=== PATIENT | male | born 1985 | race Caucasian/White ===

== ENCOUNTER 2020-08-14 01:37 | Emergency (ER) | payer BC, SELFPAY ==
--- NOTE | 2020-08-14 01:38 | ECG_ITS ---
Measurements Intervals [place] Rate: 60 P: 65 DC: 160 QRS: 72 QRSD: 106 T: 46 QT: 416 QTc: 416 Interpretive Statements SINUS RHYTHM INCOMPLETE RIGHT BUNDLE BRANCH BLOCK BORDERLINE ECG Electronically Signed On 08-14-2020 7:08:46 CDT by Jovon Toure D.O.
[2020-08-14 01:39] VITALS: BP 141/84; PULSE 69; RESP 18; TEMP 36.1; O2SAT 100
[2020-08-14 02:01] LABS: Basophils Absolute Auto 0.1 K/mm3 (0.0-0.1); Basophils Percent Auto 0.9 % (0.2-1.2); Eosinophils Absolute Auto 0.2 K/mm3 (0-0.3); Eosinophils Percent Auto 2.9 % (0-4.4); Hemoglobin 13.9 g/dL (14.0-18.0); Immature Granulocyte Absolute 0.02 K/mm3 (0.00-0.031); Immature Granulocyte Percent A 0.3 % (0-0.5); Lymphocytes Absolute Auto 2.41 K/mm3 (0.9-3.2); Lymphocytes Percent Auto 31.7 % (18.3-44.2); Mean Corpuscular HGB Conc 33.9 g/dl (32-36); Mean Corpuscular Hemoglobin 30.2 pg (26-34); Mean Corpuscular Volume 88.9 fl (80-100); Mean Platelet Volume 9.8 fl (7.4-10.4); Monocytes Absolute Auto 0.7 K/mm3 (0.1-0.6); Monocytes Percent Auto 9.3 % (2.6-8.5); Neutrophils Absolute Auto 4.2 K/mm3 (1.3-6.7); Neutrophils Percent Auto 54.9 % (45.5-73.1); Platelet Count Result 229 k/mm3 (150-375); Red Blood Count 4.61 M/mm3 (4.6-6.20); Red Cell Distribution Width 11.9 % (11.5-14.5); White Blood Count 7.6 K/mm3 (4.5-10.0)
[2020-08-14 02:13] LABS: Anion Gap 10 mmol/L (8-16); Blood Urea Nitrogen 19 mg/dL (9-20); Calcium 9.5 mg/dL (8.4-10.2); Carbon Dioxide 29 mmol/L (22-30); Chloride 102 mmol/L (98-107); Estimated CRCL calculation 117 ml/min; Estimated Glomerular Filt Rate > 60; Glucose 106 mg/dL (75-110); Potassium 3.8 mmol/L (3.4-5.0); Sodium 141 mmol/L (137-145)
[2020-08-14 02:14] LABS: INR 0.9
[2020-08-14 02:25] LABS: Troponin I < 0.012 ng/mL (0.000-0.034)
== END 2020-08-14 06:29 | disposition left against medical advice (07) ==
LOC: ANHED 03:13
PROVIDERS: Emergency Medicine; PCP Family Medicine
DX: R07.9 Chest pain, unspecified (principal)
CPT/HCPCS: 36415; 80048; 84484; 85025; 85610; 85730; 93005; 99199

== ENCOUNTER 2021-01-22 03:19 | Emergency (ER) | payer BC, SELFPAY ==
--- NOTE | ~2021-01-22 | CT_ITS ---
EXAMINATION: CT abdomen pelvis w con EXAM DATE: 01/22/2021 04:54 INDICATION: Epigastric abdominal pain . Mid abdominal tenderness. TECHNIQUE: Spiral CT of the abdomen and pelvis was performed following intravenous injection of 100 m L Omnipaque 350. Axial, coronal and sagittal images of the abdomen and pelvis were reviewed. The do se-length product (DLP) for this examination was 769.71 mGy-cm. The exposure was tailored according to patient size (auto mA exposure control), and iterative reconstruction (ASIR) was used as additiona l dose reduction technique. There is no prior study for comparison. FINDINGS: The liver, spleen, adrenal glands and pancreas are unremarkable. Gallbladder is unremarkab le. No biliary obstruction. Portal and splenic veins are patent. Kidneys enhance symmetrically. T here is no hydronephrosis. The prostate is unremarkable. The bladder is unremarkable. There is no retroperitoneal or pelvic lymphadenopathy. The appendix is normal. The stomach and small bowel are unremarkable. There is moderate amount of c olonic stool. No free intraperitoneal gas. The heart is normal in size. There are no pericardial or pleural effusions. The lung bases are unremarkable. There are no osteoblastic or osteolytic les ions identified. IMPRESSION: 1. Moderate colonic stool. Reviewed, dictated and finalized at location B. IMPRESSION: 1. Moderate colonic stool.
--- NOTE | ~2021-01-22 | XR_ITS ---
EXAMINATION: XR chest 1V portable DATE: 01/22/2021 03:50 INDICATION: Chest pain TECHNIQUE: frontal view of the chest was obtained. COMPARISON: Chest radiograph dated 06/22/2012 FINDINGS: The lungs remain clear with no focal airspace opacities, pulmonary edema, pleural effusion or pneumot horax. The cardiomediastinal silhouette is normal. Visualized bones and soft tissues are unremarkable . IMPRESSION: 1. No acute cardiopulmonary disease. Reviewed, dictated and finalized at location A.
--- NOTE | ~2021-01-22 | US_ITS ---
EXAMINATION: US abdomen limited DATE: 01/22/2021 07:30 INDICATION: Abdominal pain, elevated liver enzymes and biliary ductal dilation on prior CT. TECHNIQUE: Multiple grayscale and Doppler ultrasound images of the abdomen were obtained. COMPARISON: CT dated 01/22/2021 FINDINGS: Pancreas is normal. Liver has normal echogenicity and contour, with a smooth surface. No liver lesion identified. No intrahepatic biliary duct dilation suspected. Portal venous flow was seen in the hepa topetal, normal direction and has normal Doppler waveform. 7 x 5 x 4 mm nodule along the gallbladder wall near the fundus which per discussion with the cementer helper was nonmobile with changes in position ing consistent with a gallbladder polyp. No evident shadowing cholelithiasis. The gallbladder is othe rwise normal in appearance. The common bile duct measures 4 mm, which is normal. Sonographic Abreu s ign was reported as negative by the cementer helper.The visualized portions of the inferior vena cava and aorta are normal. Visualized portion of the right kidney demonstrates normal echogenicity with no hy dronephrosis. IMPRESSION: 1. 5-6 mm gallbladder polyp. Recommend six-month follow-up ultrasound. 2. No evident shadowing cholelithiasis or intra/extrahepatic biliary duct dilation. Reviewed, dictated and finalized at location A. IMPRESSION: 1. 5-6 mm gallbladder polyp. Recommend six-month follow-up ultrasound. 2. No evident shadowing cholelithiasis or intra/extrahepatic biliary duct dilat ion.
[2021-01-22 03:23] VITALS: BP 150/91; PULSE 71; RESP 18; TEMP 36.7; O2SAT 100
--- NOTE | 2021-01-22 03:38 | ECG_ITS ---
Measurements Intervals [place] Rate: 66 P: 71 AL: 165 QRS: 81 QRSD: 104 T: 49 QT: 408 QTc: 427 Interpretive Statements SINUS RHYTHM POSSIBLE LEFT ATRIAL ENLARGEMENT INCOMPLETE RIGHT BUNDLE BRANCH BLOCK BASELINE WANDER- II, III, AVF BORDERLINE ECG Electronically Signed On 01-22-2021 5:28:06 CDT by Jovon Toure D.O.
[2021-01-22] MEDS: SODIUM CHLORIDE 0.9% IV 1,000 ML 999 ML IV CONT (04:06)
[2021-01-22] MEDS: FAMOTIDINE 20 MG/2 ML VIAL IV PUSH (04:17)
--- NOTE | 2021-01-22 04:21 | ED.GENADULT ---
HPI - General Adult General Chief complaint: Abdominal Pain <Zhen Morton MD - Last Filed: 01/22/21 04:24> Stated complaint: abd pain <Zhen Morton MD - Last Filed: 01/22/21 04:24> Time Seen by Provider: 01/22/21 03:33 <Zhen Morton MD - Last Filed: 01/22/21 04:24> History of Present Illness HPI narrative: Patient is a 36-year-old gentleman who presents the emergency department with chief complaint of epigastric discomfort. The patient reports that he has not had a bowel movement since and reports that he has been having episodes of reflux at night and reports that whenever he is trying to sleep he is unable to get comfortable patient states there is also been a fullness in his chest with these episodes and reports that symptoms are not improved by anything patient reports no prior cardiac history reports no prior intra-abdominal surgeries patient reports symptoms or not improved by anything nor they worsened by anything <Zhen Morton MD - Last Filed: 01/22/21 04:24> Related Data Home medications: Home Medications Medication Instructions Recorded Confirmed cimetidine [Tagamet HB] PO 03/21/20 famotidine [Pepcid AC] PO 03/21/20 omeprazole PO 03/21/20 <Zhen Morton MD - Last Filed: 01/22/21 04:24> Allergies/adverse reactions: Allergies Allergy/AdvReac Type Severity Reaction Status Date / Time No Known Allergies Allergy Verified 01/22/21 03:26 <Zhen Morton MD - Last Filed: 01/22/21 04:24> Review of Systems Review of Systems: A 10 system review of systems was completed on the patient and is negative except for what is stated in the HPI. Nursing and ancillary documentation was reviewed. <Zhen Morton MD - Last Filed: 01/22/21 04:24> PMFSH Past Medical History Medical History: Medical History Achilles tendinitis of right lower extremity Anxiety Chest tightness Chronic headaches Heartburn Intractable right heel pain Plantar fasciitis of right foot Seasonal allergies Vision changes <Zhen Morton MD - Last Filed: 01/22/21 04:24> Family History Family History: Family History Father Hypertension Other Diabetes mellitus Family history of malignant neoplasm <Zhen Morton MD - Last Filed: 01/22/21 04:24> Social History Social History: Social History Smoking status: Never smoker Alcohol intake: current Drinks per week: 6 Gender identity (if verbalized by the patient): Male Sexual Orientation (if Verbalized by the Patient): Straight or Heterosexual <Zhen Morton MD - Last Filed: 01/22/21 04:24> Exam Narrative: GENERAL: Well-appearing, well-nourished, and in no acute distress. HEAD: Normocephalic, atraumatic. EYES: PERRLA and EOMI. ENT: Nares clear, no rhinorrhea or epistaxis. Mucous membranes moist. NECK: Supple. CHEST: Clear to auscultation. No respiratory distress. HEART: Regular rate and rhythm. No murmur heard. Normal peripheral pulses. ABDOMEN: Soft, nontender, nondistended, normal active bowel sounds. EXTREMITIES: Normal range of motion. No edema. SKIN: Warm, dry, no rash. NEURO: No focal deficits. Alert and oriented x3. PSYCH: Normal mood and affect. <Zhen Morton MD - Last Filed: 01/22/21 04:24> Course Course Emergency Course: Patient informed of results. Discussed case with patient's PCP Dr. Elizalde. He recommends adding on a hepatitis panel as well as a Covid PCR for further evaluation. He will have the patient follow-up and he will reevaluate patient's hepatic enzymes. <Dawson Guerrero MD - Last Filed: 01/22/21 09:43> Vital Signs Vital signs: Vital Signs Temperature 98.1 F 09
[2021-01-22 04:25] LABS: Basophils Percent Auto 0.6 % (0.2-1.2); Eosinophils Percent Auto 0.6 % (0-4.4); Hematocrit 42.4 % (42.0-52.0); Hemoglobin 14.7 g/dL (14.0-18.0); Immature Granulocyte Absolute 0.01 K/mm3 (0.00-0.031); Immature Granulocyte Percent A 0.1 % (0-0.5); Lymphocytes Absolute Auto 1.38 K/mm3 (0.9-3.2); Lymphocytes Percent Auto 20.7 % (18.3-44.2); Mean Corpuscular HGB Conc 34.7 g/dl (32-36); Mean Corpuscular Hemoglobin 30.7 pg (26-34); Mean Corpuscular Volume 88.5 fl (80-100); Mean Platelet Volume 9.8 fl (7.4-10.4); Monocytes Absolute Auto 0.6 K/mm3 (0.1-0.6); Monocytes Percent Auto 9.3 % (2.6-8.5); Neutrophils Absolute Auto 4.6 K/mm3 (1.3-6.7); Neutrophils Percent Auto 68.7 % (45.5-73.1); Platelet Count Result 235 k/mm3 (150-375); Red Blood Count 4.79 M/mm3 (4.6-6.20); Red Cell Distribution Width 11.9 % (11.5-14.5); White Blood Count 6.7 K/mm3 (4.5-10.0)
[2021-01-22 04:34] LABS: Add Urine Microscopic? YES; Appearance Urine Clear (Clear); Bacteria Urine Trace /hpf; Bilirubin Urine Negative (Negative); Blood Urine Negative (Negative); Color Urine Yellow (Yellow); Glucose Urine UA Negative (Negative); Ketones Urine Negative (Negative); Leukocyte Esterase Ur Negative LEU/UL (Negative); Mucus Urine Rare /lpf; Nitrate Urine Negative (Negative); Protein Urine Negative (Negative); Specific Grav Ur 1.023 (1.001-1.035); WBC Urine 0-3 /hpf
[2021-01-22 04:35] LABS: Lactic Acid Reflex 1.2 mmol/L (0.7-2.1)
[2021-01-22 04:36] LABS: Alanine Aminotransferase 312 U/L (4-50); Albumin Level 4.9 g/dL (3.5-5.1); Alkaline Phosphatase 60 U/L (38-126); Anion Gap 13 mmol/L (8-16); Aspartate Amino Transferase 433 U/L (17-59); Bilirubin,Total 1.3 mg/dL (0.2-1.3); Blood Urea Nitrogen 18 mg/dL (9-20); Calcium 9.2 mg/dL (8.4-10.2); Carbon Dioxide 28 mmol/L (22-30); Chloride 101 mmol/L (98-107); Estimated CRCL calculation 116 ml/min; Estimated Glomerular Filt Rate > 60; Glucose 113 mg/dL (65-110); Lipase 216 U/L (23-300); Potassium 3.9 mmol/L (3.4-5.0); Sodium 142 mmol/L (137-145)
[2021-01-22 04:47] LABS: Troponin I < 0.012 ng/mL (0.000-0.034)
[2021-01-22 06:47] VITALS: BP 146/88; PULSE 88; RESP 18; O2SAT 100
[2021-01-22 08:29] VITALS: BP 129/72; PULSE 73; RESP 12; O2SAT 100
[2021-01-22 10:15] VITALS: RESP 16
[2021-01-22 11:20] LABS: Hepatitis B Surface Antigen Negative (Negative)
[2021-01-22 11:25] LABS: HAV RESULT Negative (Negative); Hepatitis B Core IgM Result Negative (Negative)
[2021-01-22 11:37] LABS: Hepatitis C Virus Antibody Negative (Negative)
[2021-01-22 18:39] LABS: SARS-CoV-2 RNA PCR Negative
== END 2021-01-22 10:16 | disposition home or self-care (01) ==
PROVIDERS: Emergency Medicine; Emergency Provider Emergency Medicine; PCP Family Medicine
DX: K75.9 Inflammatory liver disease, unspecified (principal); K59.00 Constipation, unspecified; Z20.822 Contact with and (suspected) exposure to COVID-19; R12 Heartburn; K82.4 Cholesterolosis of gallbladder; R94.31 Abnormal electrocardiogram [ECG] [EKG]; I45.10 Unspecified right bundle-branch block
CPT/HCPCS: 36415; 71045; 74177; 76705; 80053; 80074; 81001; 83605; 83690; 84484; 85025; 93005; 96361; 96374; 99284; C9803; J7030; Q9967; U0003; U0005